=== PATIENT | female | born 1990 | race Caucasian/White ===

== ENCOUNTER 2018-09-03 08:02 | Inpatient (IN) ==
[2018-09-03] MEDS ORDERED: Sod Chloride 0.9% Inj 1,000 ML IV.CONT PRN (08:13)
[2018-09-03] MEDS ORDERED: fentaNYL Citrate Inj 100 MCG/2 ML Ampul IV.PUSH PRN ×2 (08:13)
[2018-09-03] MEDS ORDERED: Sodium Chlor 0.9% Inj 500 ML IV.SIG PRN (08:13)
[2018-09-03] MEDS ORDERED: miSOPROStol 200 MCG Tablet RECTAL PRN (08:13)
[2018-09-03] MEDS ORDERED: Methylergonovine Inj 0.2 MG/ML Ampul IM PRN (08:13)
[2018-09-03] MEDS ORDERED: Carboprost Tromethamine Inj 250 MCG/ML Ampul IM PRN (08:13)
[2018-09-03] MEDS ORDERED: Silver Nitrate/Potassium Nitrate Applicator Sticks TOPICAL PRN (08:13)
[2018-09-03] MEDS ORDERED: Naloxone Inj 0.4 MG/ML Vial IV.PUSH PRN ×2 (08:13→23:10)
[2018-09-03] MEDS ORDERED: Citric Acid/Sodium Citrate Liq 30 ML UDC PO SCH (08:15)
[2018-09-03] MEDS ORDERED: Oxytocin 30 Units/500ml Premix 30 UNITS/500 ML BAG IV.SIG PRN (08:35)
--- NOTE | 2018-09-03 08:52 | P.HPOB ---
History of Present Illness Service: obstetrics Primary Care Physician: No Primary Care Physician History of Present Illness: for labor induction. 27 yo at 39 1/7 weeks with ADHD on adderall. she is scheduled for induction over 39 weeks. Weeks Gestation:: 39 Para: 0 : 1 - Inpatient Certification I certify that the inpatient services were ordered in accordance with Medicare regulations governing the order. This includes certification that hospital inpatient services are reasonable and necessary and in the case of services not specified as inpatient-only under 42 CFR 419.22(n), that they are appropriately provided as inpatient services in accordance to with the 2-midnight benchmark under 43 CFR 412.3(e) Estimated Total Length of Stay (Days): 2 Plans for Post Hospital Care: Home Review of Systems All other systems reviewed negative except as stated in HPI [facility] - History History Provided By: Patient - Medical History Medical History: Medical History (Last Updated 08/19/18 @ 20:50 by Rick Thomason MD) ADHD (attention deficit hyperactivity disorder) - Surgical History Surgical History: Surgical History (Last Updated 08/19/18 @ 20:51 by Rick Thomason MD) Hx of appendectomy Hx of breast augmentation - Social History I have reviewed the patient's Social History: Yes - Tobacco History Second Hand Smoke Exposure: No Smoking Status: Former smoker - Alcohol History How Often Do You Have a Drink Containing Alcohol: Never - Substance Use History Substance History: No History of Abuse Medications and Allergies Active Medications: Active Medications Carboprost Tromethamine (Hemabate Inj) 250 mcg IM PRN PRN PRN Reason: hemorrhage see labe Stop: 09/04/18 08:12 Citric Acid/Sodium Citrate (Sodium Citrate/Citric Acid Liq) 30 ml PO [employer] [facility] Stop: 09/07/18 08:14 Fentanyl Citrate (Fentanyl Inj) 50 mcg IV.PUSH Q1H PRN PRN Reason: Pain Scale 3 - 5 Fentanyl Citrate (Fentanyl Inj) 100 mcg IV.PUSH Q1H PRN PRN Reason: PAIN SCALE 6 TO 10 Lactated Ringer's (Lr 1000 Ml Inj) 1,000 mls @ 125 mls/hr IV.CONT .Q8H YADIEL Lactated Ringer's (Lr 1000 Ml Inj) 1,000 mls @ 3,000 mls/hr IV.SIG UNSCH PRN PRN Reason: compromise or epidural Sodium Chloride (Ns Inj) 500 mls @ 1,000 mls/hr IV.SIG UNSCH PRN PRN Reason: SEE LABEL COMMENTS Sodium Chloride (Ns Inj) 1,000 mls @ 100 mls/hr IV.CONT .Q10H PRN PRN Reason: SEE LABEL COMMENTS Oxytocin (Pitocin 30 Units/Ns 500 Ml Premix) 30 units in 500 mls @ 999 mls/hr IV.SIG BOLUS ONE Stop: 09/03/18 08:43 Tranexamic Acid 1,000 mg/ (Sodium Chloride) 110 mls @ 440 mls/hr IV.SIG ONCE PRN PRN Reason: hemorrhage Stop: 09/04/18 08:59 Lidocaine HCl (Xylocaine 1% Inj) 0.1 ml I-DERMAL PRN PRN PRN Reason: For IV start Stop: 09/06/18 08:12 Lidocaine HCl (Xylocaine 1% Inj) 10 ml INFILTRATN UNSCH PRN PRN Reason: For episiotomy repair Methylergonovine Maleate (Methergine Inj) 0.2 mg IM PRN PRN PRN Reason: SEE LABEL COMMENTS Mineral Oil (Muri-Lube Oil) 10 ml TOPICAL PRN PRN PRN Reason: PRN perineal massage Misoprostol (Cytotec) 800 mcg RECTAL PRN PRN PRN Reason: hemorrhage Naloxone HCl (Narcan Inj) 0.1 mg IV.PUSH Q2M PRN PRN Reason: for opiate reversal Ondansetron HCl (Zofran Inj) 4 mg IV.PUSH Q6H PRN PRN Reason: NAUSEA OR VOMITING Oxytocin (Pitocin Inj) 10 unit IM PRN PRN PRN Reason: SEE LABEL COMMENTS Silver Nitrate/Potassium Nitrate (Silver Nitrate Applicators) 1 applicator TOPICAL PRN PRN PRN Reason: Vaginal laceration bleeding Terbutaline Sulfate (Brethine Inj) 0.25 mg SQ PRN PRN PRN Reason: Uterine Tachysystole Allergies Allergy/AdvReac Type Severity Reaction Status Date / Time No Known Allergies Allergy Verified 04/29/18 17:37 Home Medications Medication Instructions Recorded Confirmed Type vit,[id number] 1 tab PO DAILY 04/29/18 08/20/18 History [PNV 29-1] dextroamphetamine-amphetamine 30 mg PO DAILY 09/03/18 09/03/18 History [Adderall] valacyclovir [Valtrex] 1,000 mg PO DIRECTED 09/03/18 09/03/18 History Exam Narrative: GENERAL: Well-nourished, well-developed patient. SKIN: Warm and dry. HEAD: Normocephalic and atraumatic. EYES: No scleral icterus. No injection or drainage. ENT: No nasal drainage noted. Mucous membranes pink. Airway patent. NECK: Supple, trachea midline. No JVD. CARDIOVASCULAR: Regular rate and rhythm without murmurs, gallops, or rubs. RESPIRATORY: Breath sounds equal bilaterally. No accessory muscle use. BREASTS: Bilateral exam showed no masses , no retractions, no nipple discharge. ABDOMEN/GI: Abdomen soft, non-tender, bowel sounds present, no rebound, no guarding Gravid to 39 weeks size Fundal Height: [-] GENITOURINARY: External Genitalia: intact and normal in appearance BUS glands: [-] Cervix: [-] Dilatation:1 Effacement: 80 Station: [-] Presentation: vtx Membranes: intact Uterine Contractions: [-] FHT's: Category: 1 Baseline: [-] Reactive: [-] Variability: [-] Decels: [-] EXTREMITIES: No cyanosis or edema. BACK: Nontender without obvious deformity. No CVA tenderness. NEUROLOGICAL: Awake and alert. Motor and sensory grossly within normal limits. Five out of 5 muscle strength in all muscle groups. Normal speech. Results - Labs Group B Strep: Negative Caprini VTE Risk Assessment Caprini VTE Risk Assessment: No/Low Risk (score <= 1) Caprini Risk Assessment Model: Point Value = 1 Point Value = 2 Point Value = 3 Point Value = 5 Age 41-60 Minor surgery BMI > 25 kg/m2 Swollen legs Varicose veins or History of unexplained or recurrent spontaneous Oral contraceptives or hormone replacement Sepsis (< 1 month) Serious lung disease, including pneumonia (< 1 month) Abnormal pulmonary function Acute myocardial infarction Congestive heart failure (< 1 month) History of inflammatory bowel disease Medical patient at bed rest Age 61-74 Arthroscopic surgery Major open surgery (> 45 min) Laparoscopic surgery (> 45 min) Malignancy Confined to bed (> 72 hours) Immobilizing plaster cast Central venous access Age >= 75 History of VTE Family history of VTE Factor V Leiden Prothrombin [id number] Lupus anticoagulant Anticardiolipin antibodies Elevated serum homocysteine Heparin-induced thrombocytopenia Other congenital or acquired thrombophilia Stroke (< 1 month) Elective arthroplasty Hip, pelvis, or leg fracture Acute spinal cord injury (< 1 month) Prophylaxis Regimen: Total Risk Factor Score Risk Level Prophylaxis Regimen 0-1 Low Early ambulation 2 Moderate Order ONE of the following: *Sequential Compression Device (SCD) *Heparin 5000 units SQ BID 3-4 Higher Order ONE of the following medications: *Heparin 5000 units SQ TID *Enoxaparin/Lovenox 40 mg SQ daily (WT < 150 kg, CrCl > 30 mL/min) *Enoxaparin/Lovenox 30 mg SQ daily (WT < 150 kg, CrCl > 10-29 mL/min) *Enoxaparin/Lovenox 30 mg SQ BID (WT < 150 kg, CrCl > 30 mL/min) AND/OR *Sequential Compression Device (SCD) 5 or more Highest Order ONE of the following medications: *Heparin 5000 units SQ TID (Preferred with Epidurals) *Enoxaparin/Lovenox 40 mg SQ daily (WT < 150 kg, CrCl > 30 mL/min) *Enoxaparin/Lovenox 30 mg SQ daily (WT < 150 kg, CrCl > 10-29 mL/min) *Enoxaparin/Lovenox 30 mg SQ BID (WT < 150 kg, CrCl > 30 mL/min) AND *Sequential Compression Device (SCD) Assessment and Plan - Diagnosis (1) 39 weeks gestation of Code(s): Z3A.39 - 39 weeks gestation of Status: Acute
[2018-09-03] MEDS ORDERED: valACYclovir 500 MG Tab PO SCH (09:00)
[2018-09-03] MEDS ORDERED: Oxytocin 30 Units/500ml Premix 30 UNITS/500 ML BAG IV.SIG ONE (09:00)
[2018-09-03] MEDS ORDERED: Amphetamine/Dextroamphetamine 30 MG Tablet PO SCH (09:00)
[2018-09-03] MEDS ORDERED: Tranexamic Acid Inj 1,000 MG in Sodium Chlor 0.9% Inj 100 ML IV.SIG PRN (09:00)
[2018-09-03] MEDS: valACYclovir 500 MG Tab PO SCH (09:02)
[2018-09-03 09:09] LABS: Baso % (Auto) 0.3 % (0.0-2.0); Eos # (Auto) 0.1 th/mm3 (0.0-0.4); Eos % (Auto) 0.6 % (0.0-4.0); Hematocrit 32.3 % (35.0-46.0); Lymph # (Auto) 2.3 th/mm3 (1.0-4.8); Lymph % (Auto) 21.7 % (9.0-44.0); Mean Corpuscular HGB Conc 33.9 % (32.0-36.0); Mean Corpuscular Hemoglobin 28.2 pg (27.0-34.0); Mean Corpuscular Volume 83.2 fL (80.0-100.0); Mean Platelet Volume 8.2 fL (7.0-11.0); Mono # (Auto) 0.5 th/mm3 (0.0-0.9); Neut # (Auto) 7.5 th/mm3 (1.8-7.7); Neut % (Auto) 72.4 % (16.0-70.0); Platelet Count 301 th/mm3 (150-450); Red Blood Count 3.89 mil/mm3 (4.00-5.30); Red Cell Distribution Width 15.9 % (11.6-17.2); White Blood Count 10.4 th/mm3 (4.0-11.0)
[2018-09-03 09:12] LABS: Bacteria,Urine Rare /hpf; Bilirubin,Urine Negative (Negative); Clarity,Urine Clear (Clear); Color,Urine Yellow (Yellw/Straw); Glucose,Urine (UA) Negative (Negative); Leukocyte Esterase,Urine Negative (Negative); Nitrite,Urine Negative (Negative); Specific Gravity,Urine 1.013 (1.002-1.035); Squamous Epithelial Cell,Urine 8 /hpf (0-5)
[2018-09-03] MEDS: Amphetamine/Dextroamphetamine 30 MG Tablet PO SCH (10:01)
[2018-09-03] MEDS ORDERED: Diphtheria/Tetanus/Pertussis Vaccine Inj 0.5 ML Syringe IM ONE (16:00)
[2018-09-03] MEDS ORDERED: Measles/Mumps/Rubella Vaccine Inj 0.5 ML Vial SQ ONE (16:00)
[2018-09-03] MEDS ORDERED: fentaNYL 2MCG-Bupiv 0.125% Epi 150 ML EPIDURAL ONE (16:09)
[2018-09-03] MEDS ORDERED: Bupivacaine PF 0.25% Inj 10 ML Vial ONE (16:15)
[2018-09-03] MEDS ORDERED: Lidocaaine 1.5%/Epinephrine 1:200,000 PF Inj 5 ML Amp ONE (16:16)
[2018-09-03] MEDS ORDERED: Lidocaine PF 1% Inj 5 ML Vial ONE (16:16)
--- NOTE | 2018-09-03 17:14 | P.OBLABOR ---
Subjective Interval history: Patietn on 14 mu pit and became uncomfortable needed epidural. No comfortable Objective Vital Signs: Vital Signs - 8 hr 09/03/18 09:38 09/03/18 10:03 09/03/18 10:31 Temperature Pulse Rate 94 H 98 H Respiratory Rate 20 Blood Pressure 135/77 137/83 09/03/18 10:32 09/03/18 11:07 09/03/18 11:45 Temperature Pulse Rate 91 H 101 H 100 H Respiratory Rate 20 Blood Pressure 124/80 125/79 140/97 H 09/03/18 13:07 09/03/18 13:15 09/03/18 13:28 Temperature Pulse Rate 106 H 98 H Respiratory Rate 20 Blood Pressure 120/78 124/80 09/03/18 13:45 09/03/18 14:53 09/03/18 16:18 Temperature 98.0 F Pulse Rate 99 H 99 H Respiratory Rate Blood Pressure 139/76 135/89 09/03/18 16:21 09/03/18 16:40 09/03/18 16:45 Temperature 97.9 F Pulse Rate 103 H 110 H Respiratory Rate Blood Pressure 131/80 135/76 09/03/18 16:50 09/03/18 16:55 09/03/18 17:05 Temperature Pulse Rate 107 H 105 H 106 H Respiratory Rate Blood Pressure 115/65 123/66 122/72 Objective: Pelvic Exam: Cervix: [-] Dilatation: [-] Effacement: [-] Station: [-] Presentation: [-] Membranes: [intact or ruptured] Uterine Contractions: [-] FHT's: Category: [-] Baseline: [-] Reactive: [-] Variability: [-] Decels: [-] Patient Started Active Labor: Yes Medical Induction of Labor: Yes Medical Induction Start Date: 09/03/18 Artificial Rupture of Membrane: Yes Assessment and Plan - Diagnosis (1) 39 weeks gestation of Code(s): Z3A.39 - 39 weeks gestation of Status: Acute
[2018-09-03] MEDS ORDERED: fentaNYL 2MCG-Bupiv 0.125% Epi 150 ML EPIDURAL PRN (17:17)
[2018-09-03] MEDS ORDERED: fentaNYL Citrate Inj 100 MCG/2 ML Ampul EPIDURAL ONE (17:17)
[2018-09-03] MEDS ORDERED: Zolpidem Tartrate 5 MG Tablet PO PRN (23:10)
[2018-09-03] MEDS ORDERED: Benzocaine 20% Top Spray 60 ML Can TOPICAL PRN (23:10)
[2018-09-03] MEDS ORDERED: Bisacodyl 10 MG Supp RECTAL PRN (23:10)
[2018-09-03] MEDS ORDERED: Acetaminophen 325 MG Tablet PO PRN (23:10)
[2018-09-03] MEDS ORDERED: Witch Hazel 50%/Glyderin 12.5% 40 Pad Jar RECTAL PRN (23:10)
[2018-09-03] MEDS ORDERED: Oxytocin 30 Units/500ml Premix 30 UNITS/500 ML BAG IV.CONT PRN (23:10)
--- NOTE | 2018-09-03 23:13 | P.OBDELI ---
Weeks Gestation: 39 Patient Started Active Labor: Yes Medical Induction of Labor: Yes Artificial Rupture of Membrane: Yes Anesthesia: Epidural Episiotomy: none Vaginal Delivery: Normal, Spontaneous Presentation: Occiput anterior Nuchal Cord: None Delayed Cord Clamping (45 sec): Yes Placenta: Spontaneous delivery, Intact, 3 vessel cord Laceration: Vaginal, 2 deg Repair: Chromic running Infant: Female, Single
[2018-09-04] MEDS: Amphetamine/Dextroamphetamine 30 MG Tablet PO SCH (09:28)
[2018-09-04] MEDS: Senna/Docusate Sodium 8.6/50 MG Tablet PO SCH ×2 (09:28→20:16)
[2018-09-04] MEDS: valACYclovir 500 MG Tab PO SCH (09:28)
--- NOTE | 2018-09-04 10:16 | P.PNOB ---
Subjective Post day: 1 Interval history: doing well dc home Objective Vital Signs/I&O: Vital Signs 09/03/18 10:31 09/03/18 10:32 09/03/18 11:07 Temperature Pulse Rate 91 H 101 H Respiratory Rate 20 Blood Pressure 124/80 125/79 09/03/18 11:45 09/03/18 13:07 09/03/18 13:15 Temperature Pulse Rate 100 H 106 H Respiratory Rate 20 20 Blood Pressure 140/97 H 120/78 09/03/18 13:28 09/03/18 13:45 09/03/18 14:53 Temperature 98.0 F Pulse Rate 98 H 99 H Respiratory Rate Blood Pressure 124/80 139/76 09/03/18 16:18 09/03/18 16:21 09/03/18 16:40 Temperature 97.9 F Pulse Rate 99 H 103 H Respiratory Rate Blood Pressure 135/89 131/80 09/03/18 16:45 09/03/18 16:50 09/03/18 16:55 Temperature Pulse Rate 110 H 107 H 105 H Respiratory Rate Blood Pressure 135/76 115/65 123/66 09/03/18 17:05 09/03/18 17:10 09/03/18 17:15 Temperature Pulse Rate 106 H 104 H 106 H Respiratory Rate 18 Blood Pressure 122/72 123/74 09/03/18 17:20 09/03/18 17:25 09/03/18 17:30 Temperature Pulse Rate 104 H 113 H 99 H Respiratory Rate 18 Blood Pressure 109/65 09/03/18 17:40 09/03/18 17:47 09/03/18 18:06 Temperature 98.5 F Pulse Rate 94 H 108 H 98 H Respiratory Rate 18 17 Blood Pressure 105/62 97/56 L 09/03/18 18:25 09/03/18 18:28 09/03/18 18:46 Temperature Pulse Rate 122 H 92 H Respiratory Rate 18 Blood Pressure 122/66 122/72 09/03/18 18:50 09/03/18 18:55 09/03/18 19:10 Temperature Pulse Rate 93 H 88 91 H Respiratory Rate Blood Pressure 117/61 09/03/18 19:25 09/03/18 19:52 09/03/18 19:53 Temperature 98.0 F Pulse Rate 98 H 102 H Respiratory Rate 18 Blood Pressure 128/73 119/60 03/01/19 19:55 09/03/18 20:00 09/03/18 20:05 Temperature Pulse Rate 96 H 97 H Respiratory Rate 18 Blood Pressure 128/73 130/73 09/03/18 20:10 09/03/18 20:20 09/03/18 20:21 Temperature Pulse Rate 94 H 91 H Respiratory Rate 18 Blood Pressure 129/73 09/03/18 20:50 09/03/18 20:55 09/03/18 21:33 Temperature Pulse Rate 93 H 99 H 96 H Respiratory Rate Blood Pressure 116/75 09/03/18 22:16 09/03/18 22:30 09/03/18 23:09 Temperature Pulse Rate 104 H 99 H 105 H Respiratory Rate 18 Blood Pressure 131/73 127/76 128/51 L 09/03/18 23:15 09/03/18 23:30 09/03/18 23:45 Temperature Pulse Rate 106 H 105 H Respiratory Rate 16 18 Blood Pressure 129/81 137/73 09/04/18 00:01 09/04/18 00:15 09/04/18 00:30 Temperature Pulse Rate 103 H 100 H 112 H Respiratory Rate 18 Blood Pressure 125/70 129/74 122/71 09/04/18 00:46 09/04/18 01:40 09/04/18 07:45 Temperature 98.6 F 98.2 F 97.9 F Pulse Rate 95 H 74 90 Respiratory Rate 18 18 18 Blood Pressure 122/81 135/71 114/61 Intake & Output 09/03/18 09/04/18 09/04/18 18:59 06:59 18:59 Intake Total 1999 Balance 1999 Weight 104.326 kg Intake: IV 1999 LR 1000 mL Inj 1,000 ML @ 125 1000 / 1000 mls/hr IV.CONT .Q8H YADIEL Rx#: [id number] LR 1000 mL Inj 1,000 ML @ 3000 1000 / 1000 mls/hr IV.SIG UNSCH PRN Rx#: [id number] Other: Weight On Admission 104.326 kg Result Diagrams: 09/03/18 08:38 Objective Remarks: GENERAL: Well-nourished, well-developed patient. ABDOMEN/GI: Abdomen soft, non-tender. Fundus: Firm, non-tender at umbilicus. GENITOURINARY: Light to moderate bleeding. EXTREMITIES: No cyanosis or edema, non-tender, without signs of DVT. Medications and IVs: Active Medications Acetaminophen (Tylenol) 650 mg PO Q4H PRN PRN Reason: PAIN SCALE 1 TO 2 Al Hydroxide/Mg Hydroxide (Milk Of Magnesia Liq) 30 ml PO Q12H PRN PRN Reason: Mild Constipation Amphetamine/Dextroamphetamine (Adderall) 30 mg PO DAILY YADIEL Last Admin: 09/04/18 09:28 Dose: 30 mg Benzocaine (Americaine 20% [place]) 1 spray TOPICAL Q4H PRN PRN Reason: For Perineum Discomfort Bisacodyl (Dulcolax Supp) 10 mg RECTAL DAILY PRN PRN Reason: SEVERE CONSITIPATION Ephedrine Sulfate (Ephedrine/Ns Syringe) 10 mg IV.PUSH UNSCH PRN PRN Reason: SEE LABEL COMMENTS Stop: 09/04/18 17:17 Last Admin: 09/03/18 18:32 Dose: 10 mg Oxytocin (Pitocin 30 Units/Ns 500 Ml Premix) 30 units in 500 mls @ 2 mls/hr IV.SIG TITRATE PRN; Protocol PRN Reason: For induction of labor Last Titration: 09/03/18 16:50 Dose: 14 milliunit/min, 14 mls/hr Fentanyl/Bupivacaine/Sodium Chlor (Fentanyl 2 Mcg-Bupiv 0.125% Epi) 150 mls @ 10 mls/hr EPIDURAL PRN PRN PRN Reason: for Labor Pain Last Admin: 09/03/18 18:31 Dose: 10 mls/hr Oxytocin (Pitocin 30 Units/Ns 500 Ml Premix) 30 units in 500 mls @ 100 mls/hr IV.CONT UNSCH PRN PRN Reason: Heavy bleeding Ibuprofen (Motrin) 800 mg PO Q8H PRN PRN Reason: For Cramping Last Admin: 09/04/18 09:31 Dose: 800 mg Lactulose (Lactulose Liq) 30 ml PO DAILY PRN PRN Reason: SEVERE CONSITIPATION Miscellaneous Information (Misc Information) 1 each OTHER UNSCH PRN PRN Reason: SEE LABEL COMMENTS Stop: 09/04/18 17:17 Miscellaneous Information (Misc Information) 1 each OTHER UNSCH PRN PRN Reason: SEE LABEL COMMENTS Stop: 09/04/18 17:17 Naloxone HCl (Narcan Inj) 0.1 mg IV.PUSH Q2M PRN PRN Reason: for opiate reversal Ondansetron HCl (Zofran Odt) 4 mg PO Q6H PRN PRN Reason: NAUSEA OR VOMITING Oxycodone/Acetaminophen (Percocet 5/325 Mg) 2 tab PO Q4H PRN PRN Reason: PAIN SCALE 6 TO 10 Last Admin: 09/04/18 05:23 Dose: 2 tab Oxycodone/Acetaminophen (Percocet 5/325 Mg) 1 tab PO Q4H PRN PRN Reason: PAIN SCALE 3 TO 5 Last Admin: 09/04/18 09:31 Dose: 1 tab Senna/Docusate Sodium (Eva-Colace) 1 tab PO BID [facility] Last Admin: 09/04/18 09:28 Dose: 1 tab Sennosides (Senokot) 17.2 mg PO Q12H PRN PRN Reason: Moderate Constipation Sodium Chloride (Ns Flush) 2 ml IV.FLUSH BID [facility] Sodium Chloride (Ns Flush) 2 ml IV.FLUSH PRN PRN PRN Reason: FLUSH AFTER USING IV ACCESS Valacyclovir HCl (Valtrex) 1,000 mg PO DAILY [facility] Last Admin: 09/04/18 09:28 Dose: 1,000 mg Witch Leann/Glycerin (Tucks Pads) 1 applicatio RECTAL QID PRN PRN Reason: HEMORRHOIDS Zolpidem Tartrate (Ambien) 5 mg PO HS PRN PRN Reason: SLEEP Assessment and Plan - Diagnosis (1) 39 weeks gestation of Code(s): Z3A.39 - 39 weeks gestation of Status: Acute
--- NOTE | 2018-09-05 06:33 | P.PNOB ---
Subjective Post day: 2 Interval history: doing well. without difficulty Objective Vital Signs/I&O: Vital Signs 09/04/18 07:45 09/04/18 15:25 09/04/18 15:28 Temperature 97.9 F 98.1 F 98.1 F Pulse Rate 90 103 H 106 H Respiratory Rate 18 18 18 Blood Pressure 114/61 108/71 108/71 09/04/18 19:42 Temperature 97.9 F Pulse Rate 111 H Respiratory Rate 20 Blood Pressure 142/86 H Intake & Output 09/04/18 09/04/18 09/05/18 06:59 18:59 06:59 Intake Total 0 / 0 Balance 0 / 0 Intake: Intake (Blood Product) Amt 0 / 0 Rho(D) Immune Globulin Unit 0 / 0 [id number] Result Diagrams: 09/03/18 08:38 Objective Remarks: GENERAL: Well-nourished, well-developed patient. CARDIOVASCULAR: Regular rate and rhythm without murmurs, gallops, or rubs. RESPIRATORY: Breath sounds equal bilaterally. No accessory muscle use. ABDOMEN/GI: Abdomen soft, non-tender. Fundus: Firm, non-tender at umbilicus. GENITOURINARY: Light to moderate bleeding. EXTREMITIES: No cyanosis or edema, non-tender, without signs of DVT. Medications and IVs: Active Medications Acetaminophen (Tylenol) 650 mg PO Q4H PRN PRN Reason: PAIN SCALE 1 TO 2 Al Hydroxide/Mg Hydroxide (Milk Of Magnfabiana Liq) 30 ml PO Q12H PRN PRN Reason: Mild Constipation Amphetamine/Dextroamphetamine (Adderall) 30 mg PO DAILY YADIEL Last Admin: 09/04/18 09:28 Dose: 30 mg Benzocaine (Americaine 20% [place]) 1 spray TOPICAL Q4H PRN PRN Reason: For Perineum Discomfort Last Admin: 09/04/18 20:15 Dose: 1 spray Bisacodyl (Dulcolax Supp) 10 mg RECTAL DAILY PRN PRN Reason: SEVERE CONSITIPATION Oxytocin (Pitocin 30 Units/Ns 500 Ml Premix) 30 units in 500 mls @ 2 mls/hr IV.SIG TITRATE PRN; Protocol PRN Reason: For induction of labor Last Titration: 09/03/18 16:50 Dose: 14 milliunit/min, 14 mls/hr Fentanyl/Bupivacaine/Sodium Chlor (Fentanyl 2 Mcg-Bupiv 0.125% Epi) 150 mls @ 10 mls/hr EPIDURAL PRN PRN PRN Reason: for Labor Pain Last Admin: 09/03/18 18:31 Dose: 10 mls/hr Oxytocin (Pitocin 30 Units/Ns 500 Ml Premix) 30 units in 500 mls @ 100 mls/hr IV.CONT UNSCH PRN PRN Reason: Heavy bleeding Ibuprofen (Motrin) 800 mg PO Q8H PRN PRN Reason: For Cramping Last Admin: 09/05/18 02:17 Dose: 800 mg Lactulose (Lactulose Liq) 30 ml PO DAILY PRN PRN Reason: SEVERE CONSITIPATION Naloxone HCl (Narcan Inj) 0.1 mg IV.PUSH Q2M PRN PRN Reason: for opiate reversal Ondansetron HCl (Zofran Odt) 4 mg PO Q6H PRN PRN Reason: NAUSEA OR VOMITING Oxycodone/Acetaminophen (Percocet 5/325 Mg) 2 tab PO Q4H PRN PRN Reason: PAIN SCALE 6 TO 10 Last Admin: 09/04/18 05:23 Dose: 2 tab Oxycodone/Acetaminophen (Percocet 5/325 Mg) 1 tab PO Q4H PRN PRN Reason: PAIN SCALE 3 TO 5 Last Admin: 09/04/18 18:28 Dose: 1 tab Senna/Docusate Sodium (Eva-Colace) 1 tab PO BID [facility] Last Admin: 09/04/18 20:16 Dose: 1 tab Sennosides (Senokot) 17.2 mg PO Q12H PRN PRN Reason: Moderate Constipation Sodium Chloride (Ns Flush) 2 ml IV.FLUSH BID [facility] Last Admin: 09/04/18 23:28 Dose: Not Given Sodium Chloride (Ns Flush) 2 ml IV.FLUSH PRN PRN PRN Reason: FLUSH AFTER USING IV ACCESS Valacyclovir HCl (Valtrex) 1,000 mg PO DAILY [facility] Last Admin: 09/04/18 09:28 Dose: 1,000 mg Witch Leann/Glycerin (Tucks Pads) 1 applicatio RECTAL QID PRN PRN Reason: HEMORRHOIDS Last Admin: 09/04/18 20:15 Dose: 1 applicatio Zolpidem Tartrate (Ambien) 5 mg PO HS PRN PRN Reason: SLEEP Assessment and Plan - Diagnosis (1) 39 weeks gestation of Code(s): Z3A.39 - 39 weeks gestation of Status: Acute (2) (spontaneous vaginal delivery) Code(s): O80 - Encounter for full-term uncomplicated delivery Status: Acute
--- NOTE | 2018-09-05 06:36 | P.DS ---
Date of admission: 09/03/18 08:02 Primary care physician: Eve Primary Care Physician Brief History from admission: for labor induction. 27 yo at 39 1/7 weeks with ADHD on adderall. she is scheduled for induction over 39 weeks. DS: Diagnosis - Discharge Diagnosis (1) 39 weeks gestation of Status: Acute (2) (spontaneous vaginal delivery) Status: Acute DS: Summary Hospital Course: doing well induction - Time Spent with Patient Total time spent providing and/or coordinating discharge services: Less than 30 minutes Exam Vital signs: Vital Signs 09/04/18 07:45 09/04/18 15:25 09/04/18 15:28 Temperature 97.9 F 98.1 F 98.1 F Pulse Rate 90 103 H 106 H Respiratory Rate 18 18 18 Blood Pressure 114/61 108/71 108/71 09/04/18 19:42 Temperature 97.9 F Pulse Rate 111 H Respiratory Rate 20 Blood Pressure 142/86 H Intake & Output 09/04/18 09/04/18 09/05/18 06:59 18:59 06:59 Intake Total 0 / 0 Balance 0 / 0 Intake: Intake (Blood Product) Amt 0 / 0 Rho(D) Immune Globulin Unit 0 / 0 [id number] - Constitutional no acute distress - Routine Abdominal Exam Present: soft, normoactive bowel sounds - Routine Neurological Exam Present: oriented X3 Results Procedures completed during hospitalization: Labs on day of discharge: Labs from last 24 hours 09/04/18 05:46 Blood Type O Negative Ab Screen Tube Method Negative Blood Bank Comment Discharge Plan - Discharge Disposition Patient Disposition: Discharge Home - Discharge Condition Condition: Good - Discharge Order Discharge Orders: Discharge Order (Routine); Ordered 09/05/18 Ordered By: Rick Thomason - Physicians Team Primary Care Provider: Primary Care Eve German Attending Provider: Rick Thomason - Rxs /Orders / Referrals /Forms Prescriptions: Continue dextroamphetamine-amphetamine [Adderall] 30 mg Tablet 30 mg PO DAILY vit,[id number] [PNV 29-1] 29 mg iron- 1 mg Tablet 1 tab PO DAILY valacyclovir [Valtrex] 500 mg Tablet 1,000 mg PO DIRECTED Referrals: Primary Care Eve German [Primary Care Provider] - See Instructions - Discharge Instructions Patient Printed Instructions: Preeclampsia and Eclampsia After Delivery (GEN) - Post Discharge Care Plan Care Plan Goals: Discharge Plan of Care After Vaginal Delivery Congratulations on your new baby! We want your recovery to be rodgers and trouble free. After having a baby, your body may be very tired. It can take time to recover from a vaginal delivery. You may stay in the hospital or center from 1 to 4 days. In some cases, you may be able to go home the same day. Changing Expectations for Parents: Most new mothers experience some form of the baby blues. These mood swings are caused by hormonal shifts in your body. Stress due to the recent changes in your life and lack of sleep also have an effect. The baby blues may last a few days or up to 2 weeks. Balancing the Blues: Recognize your need to talk, to feel protected, to have private time. Allow yourself to cry, to sit, to think. Ask for help when you need it, and accept help when its offered. Knowing your needs is not a weakness. Share your thoughts with your partner. Or strip picker the phone and call a friend, your mother , a sister, or an aunt. Rest, eat right, and get some light exercise. The mind feels best when the body feels good. Diet and Activity: * Eat fresh fruit and vegetables, whole grains, and bran cereals. * Drink plenty of water. * Dont strain to have a bowel movement. * Follow activity as directed. * After you deliver your baby, you can start to exercise when you feel ready. Let your body be your guide. If you are : * Ask before you take any medicine. * If you leak milk, it will help to nurse right before the activity. * Talk to your healthcare provider about alcohol, if you choose to drink. * When youre sick, check with your physician if the medications would impact the breast feeding * Ask your physician before taking any prescription or [id number] medicines, herbs, or supplements. * Ask your physician what to use for prevention while you are nursing. If you have Stitches: * Gently wipe from front to back after you urinate or have a bowel movement.. * After wiping, spray warm water on the area. Or you can have a sitz bath. This means sitting in a tub with a few inches of water in it. * Pat the area dry or use a hairdryer on a cool setting. * Do not use soap or any solution except water on the area. * You can take a shower unless told not to. * Change sanitary pads at least every 2 to 4 hours.. * Place cold or heat packs on the area as directed by your physician or nurses. Keep a thin towel between the pack and your skin. When to call your doctor: Call your doctor right away if you have: Fever of 100.5F (38C) or higher, or as directed by your doctor. Heavy or gushing bleeding from the vagina. Discharge that has a bad odor. No bowel movement within one week after the of your baby. Pain or urgency with urination, or inability to urinate. Severe pain in the belly or increased pain near your stitches. Signs of Depression include: You dont want to be with the baby. Your symptoms are not getting better, and youre getting more upset. You have no interest in eating or are not able to sleep. You think you may harm yourself or the baby. The Depression After Delivery hotline (845-605-3348) may also be helpful. If your symptoms worsen call your OB Physician, or go to an Urgent Care Center or Emergency Room Smoking is Dangerous to your health. Avoid second hand smoke Call the 24-hour crisis hotline for domestic abuse at Follow-Up: Do Not miss your follow-up appointment. Increasing symptoms of depression. Keep up with all your appointments and yearly check ups. Call 911: Call 911 right away if you have: Chest pain. Shortness of breath. Any pain or tenderness in your calf. Severe depression or Thoughts of harm to self and others.
[2018-09-05] MEDS: Amphetamine/Dextroamphetamine 30 MG Tablet PO SCH (09:09)
[2018-09-05] MEDS: Senna/Docusate Sodium 8.6/50 MG Tablet PO SCH (09:09)
[2018-09-05] MEDS: valACYclovir 500 MG Tab PO SCH (09:09)
[2018-09-05 09:18] VITALS: BP 121/73; PULSE 90
[2018-09-05 09:19] VITALS: RESP 18; TEMP 98.2
== END 2018-09-05 14:50 | disposition home or self-care (01) | DRG 807 ==
LOC: H2E 08:02 → H1EA 09-04 02:09
PROVIDERS: ADMIT Obstetrics & Gynecology; ATTEND Obstetrics & Gynecology
CPT/HCPCS: 59025; 81001; 85025; 85461; 86850; 86900; 86901; 90384; 90715; 96372; J2405; J2590; J2790; J3010; J7120